=== PATIENT | male | born 1960 | race Caucasian/White ===

== ENCOUNTER 2020-04-13 19:04 | Emergency (ER) | payer OTHER, SELFPAY ==
[2020-04-13 19:05] VITALS: BP 178/92; PULSE 72; RESP 16; TEMP 36.6; O2SAT 96; BMI 30.5
--- NOTE | 2020-04-13 19:40 | RAD_ITS ---
STUDY: X-RAY - RIGHT TIBIA AND FIBULA REASON FOR EXAM: Male, 60 years old. Fall TECHNIQUE: 4 view(s) of the tibia and fibula were obtained. COMPARISON: None. FINDINGS: The patient is status post right knee arthroplasty. There is no evidence of fracture or dislocation. There are no significant degenerative changes. There are no radiodense foreign bodies. RAD/Tibia & Fibula 2 Views IMPRESSION: No fracture or dislocation in the right tibia and fibula. Status post right knee arthroplasty. Electronically Signed: Germán Bundy, at 20:16 EDT Tel , Service support ,
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
--- NOTE | 2020-04-13 21:16 | ED.DEP ---
ED Disposition - Plan for ED Patient: Disposition: Home or Assisted Living Instructions: ED EXTREMITY CONTUSION Lower Prescriptions: Hydrocodone/Acetaminophen [[place] 10-325 Tablet] 1 ea PO Q4H PRN PRN 4 Days #14 tab PRN Reason: Pain Or Fever Prescription Printed Referrals: [facility],Out of [NON-STAFF] - 1 Week if not improving Additional Instructions: Ice to all sore areas. Tylenol and Motrin for pain. Follow-up with your doctor if not improving for further evaluation.
[2020-04-13 22:07] VITALS: BP 160/70; PULSE 79; RESP 18; O2SAT 97
== END 2020-04-13 22:08 | disposition home or self-care (01) ==
PROVIDERS: Emergency Provider Emergency Medicine
DX: S70.02XA Contusion of left hip, initial encounter (principal); S80.11XA Contusion of right lower leg, initial encounter; V29.88XA Motorcycle rider (driver) (passenger) injured in other specified transport accidents, initial encounter; Y93.I9 Activity, other involving external motion; Y92.008 Other place in unspecified non-institutional (private) residence as the place of occurrence of the external cause; Y99.8 Other external cause status
CPT/HCPCS: 73502; 73590; 99282